=== PATIENT | female | born 1965 | race African-American/Black ===

== ENCOUNTER → 2023-08-01 09:06 | Outpatient (REF) | payer BC, SELFPAY | LOC: REG 09:06 | PROVIDERS: ATTENDING PHYSICIAN Internal Medicine | DX: A04.72 Enterocolitis due to Clostridium difficile, not specified as recurrent (principal) | CPT/HCPCS: 87324; 87449 ==

== ENCOUNTER 2023-08-05 23:11 | Emergency (ER) | payer BC, SELFPAY ==
[2023-08-05 23:12] VITALS: BP 158/94
[2023-08-06] MEDS: FIRVANQ 125 MG PO (00:10)
[2023-08-06] MEDS: NSS 1000 IV (00:12)
[2023-08-06 00:24] LABS: ALT (SGPT) 28 U/L (0-35); AST (SGOT) 22 U/L (14-36); Albumin 3.3 g/dl (3.5-5.0); Alkaline Phosphatase 89 U/L (38-126); Blood Urea Nitrogen 18 mg/dl (7-17); Calcium 9.6 mg/dl (8.4-10.2); Carbon Dioxide 25 mmol/L (22-30); Chloride 101 mmol/L (98-107); Glucose 121 mg/dl (70-99); Potassium 3.4 mmol/L (3.5-5.1); Sodium 135 mmol/L (135-145); Total Bilirubin 0.5 mg/dl (0.2-1.3); Total Protein 6.1 g/dl (6.3-8.2); eGFR 53.46
[2023-08-06 00:35] LABS: % Basophils 0.4 % (0-2); % Eosinophils 1.9 % (0-6); % Lymphocytes 22.6 % (20.5-51.1); % Monocytes 11.8 % (1.7-9.3); % Neutrophils 62.3 % (42.2-75.2); Absolute Eosinophils 0.2 10^3/uL (0-0.7); Absolute Immature Granulocytes 0.1 10^3/uL (0-0.05); Absolute Lymphocytes 1.8 10^3/uL (1.2-3.4); Absolute Monocytes 0.9 10^3/uL (0.1-0.6); Hematocrit 36.9 % (37.0-47.0); Hemoglobin 12.1 g/dL (12.0-16.0); Mean Corp Hgb Conc. 32.8 g/dL (33.0-37.0); Mean Corpuscular Hgb 26.9 pg (27.0-31.0); Mean Corpuscular Volume 82.2 fL (81.0-99.0); Mean Platelet Volume 9.5 fL (7.4-10.4); Nucleated Red Blood Cells % 0 %; Platelet Count 257 10^3/uL (130-400); Red Blood Cell Count 4.49 10^6/uL (4.20-5.40); Red Cell Dist. Width 14.6 % (11.5-14.5)
[2023-08-06 00:36] VITALS: BP 129/79
--- NOTE | 2023-08-06 00:51 | ED.GENMED ---
History of Present Illness
General
Chief Complaint: Abdominal Pain
Source: patient, records and previous hospital records (Previous hospitalization March 2023 treated for acute gastroenteritis found to have acute C. difficile colitis complicated by acute kidney injury related to dehydration)
Exam Limitations: none
Time Seen by Provider: 08/05/23 23:26
Nursing documentation reviewed up to this point in time: agreed with
Travel History
Have you had any contact with someone who has COVID-19?: No
Do you have any symptoms of coronavirus? Fever > 100 degrees, chills, cough, shortness of breath, sore throat, loss of taste or smell, muscle aches, or headache?: No
History of Present Illness
History of Present Illness:
This is a 57-year-old woman who has history of C. difficile colitis hospitalized here March 2023. At that time she was suffering with nausea, vomiting, diarrhea, acute febrile illness. C. difficile antigen found to be positive and patient has
no risk factors for C. 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. She was treated with Dificid and then transitioned to oral vancomycin as Dificid was cost prohibitive.
Hospitalization was complicated by acute kidney injury related to dehydration as well as hypokalemia.
Patient states since that hospitalization she has had 2 recurrent episodes of C. difficile, both treated with oral vancomycin. Initial episode in April and stool for C. difficile was positive at that time. An additional episode occurred in
June, she was treated with oral vancomycin without stool sampling.
Patient complains of intermittent mid to upper abdominal crampy pain accompanied with diarrhea that began 9 days ago. Symptoms feel very similar to previous episodes of C. difficile colitis. She has not had a fever nor chills, no nausea nor
vomiting. She denies hematochezia. No dizziness nor lightheadedness. Abdominal cramping improves after passing a loose stool. She reports passing approximately 6-8 small watery stools per day with occasional mixed with small pieces of soft stool.
She did drop off a stool for C. difficile testing on Sunday, August 01. Has not received results yet. She attempted to call her primary care physician but apparently is out of town until the end of next week.
With ongoing symptoms for more than a week patient presented to the ED for further evaluation.
She denies recent travel nor recent antibiotic use.
Past History
Past History
ED Past Medical History: GERD, HTN and Other (Gastritis, C. difficile colitis March 2023); Negative Asthma or NIDDM
ED Past Surgical History: None
Social History
Tobacco: Non-smoker
Alcohol: None
Drug: None
Personal:
Living: with family
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
Family History
Family History: Other (nc)
Phy Exam
Physical Exam
Physical Exam:
GENERAL: 57-year-old woman appears her stated age, bright and alert, pleasant, appears in no acute distress.
EYE: anicteric
NECK: Supple, nontender, no meningismus, no significant adenopathy.
ENT: oral mucosa is moist. No rhinorrhea.
CARDIAC: Regular rate and rhythm. no murmur.
LUNGS: Clear breath sounds bilaterally, no acute respiratory distress, no wheezes/rales/rhonchi
ABDOMEN: Soft, nondistended, without focal tenderness, no r/g, no cvat. normoactive BS.
NEUROLOGICAL: Alert and oriented x3, no focal neuro deficits. Gait is vincent and steady.
SKIN: Warm and dry, normal color, skin intact. No rash.
MUSCULOSKELETAL: No C/C/E. peripheral pulses are full and equal b/l. No palpable tenderness.
PSYCH: Normal and appropriate interaction.
Course
Orders/Labs/Results
Orders:
Orders
08/05/23 23:44
0.9% Sodium Chloride 1000 ml [Nss] 1,000 ml IV BOLUS
08/05/23 23:47
Complete Blood Count/With Diff Urgent
Comprehensive Metabolic Panel Urgent
Lipase Urgent
08/05/23 23:52
Vancomycin HCl [Firvanq] 125 mg PO NOW STA
08/06/23 01:06
Potassium Chloride [KCl] 20 meq PO NOW STA
Abnormal Lab Results
08/05/23
23:47
Hct 36.9 L %
(37.0-47.0)
MCH 26.9 L pg
(27.0-31.0)
MCHC 32.8 L g/dL
(33.0-37.0)
RDW 14.6 H %
(11.5-14.5)
Abs Immat Gran (auto) 0.1 H 10^3/uL
(0-0.05)
Absolute Monos (auto) 0.9 H 10^3/uL
(0.1-0.6)
Immature Gran % 1.0 H %
(0-0.5)
Monocytes % 11.8 H %
(1.7-9.3)
Potassium 3.4 L mmol/L
(3.5-5.1)
BUN 18 H mg/dl
(7-17)
Creatinine 1.2 H mg/dL
(0.6-1.0)
Glucose 121 H mg/dl
(70-99)
Total Protein 6.1 L g/dl
(6.3-8.2)
Albumin 3.3 L g/dl
(3.5-5.0)
08/05/23 23:47
08/05/23 23:47
Vital Signs
Initial and Last Documented VS:
Initial Vital Signs
Temp Pulse Resp BP Pulse Ox
98.2 F 94 18 158/94 98
08/05/23 23:12 08/05/23 23:12 08/05/23 23:12 08/05/23 23:12 08/05/23 23:12
Last Documented Vital Signs
Temp Pulse Resp BP Pulse Ox
98.2 F 76 16 135/76 100
08/05/23 23:12 08/06/23 01:21 08/06/23 01:21 08/06/23 01:21 08/06/23 01:21
MDM/Problems Addressed
Differential Diagnosis Includes:
Concern for recurrent C. difficile colitis.
Stool for C. difficile on August 01 was positive for toxigenic C. difficile.
Concern for acute on chronic kidney disease, concern for electrolyte abnormality, recurrent hypokalemia. Less likely biliary colic/cholecystitis, pancreatitis, gastritis. As abdomen is currently soft and nontender, bowel obstruction is unlikely.
Clinically, overall patient is well in appearance and appears euvolemic.
Abdomen is soft and nontender.
Will check labs including LFTs, lipase.
Will initiate IV fluids and initiate oral vancomycin.
Chronic conditions affecting care: Kidney disease (Chronic kidney disease stage II/III) and Other (Prior history of C. difficile colitis)
*Pulse Oximetry
Patient hypoxic: no
*Critical Care Note
Total Time (30-74mins, 75-104mins- exclusive of procedures): Not Applicable
Update Note
Update Note:
Patient continues to feel well, she has passed 1 loose stool since arrival to the ED with no significant abdominal discomfort and remains afebrile.
Labs show normal white blood cell count.
Creatinine 1.2, appears to be patient's baseline of 1.1-1.2
Very mild hypokalemia with potassium of 3.4. Repleted orally.
Will discharge to home with 10-day course of oral vancomycin.
Recommend she continue probiotic and continue cholestyramine as well.
Discussed importance of remaining well-hydrated on a daily basis. Consume potassium rich foods such as bananas.
Recommend she touch base with GI specially with concern for recurrent C. difficile diarrheal illnesses.
ED Attending Note
-
Portions of this chart may have been created with voice recognition software.� Occasional wrong word or��sound alike� substitutions may have occurred due to the inherent limitations of voice recognition software.
Discharge Plan
Departure
Patient Disposition: Home (Routine Discharge)
Date of Disposition: 08/06/23
Time of Disposition: 01:37
Patient with high blood pressure during this ER visit?: No
Condition: Good
Discharge Problem:
Recurrent Clostridioides difficile diarrhea
Instructions: Clostridioides difficile (DC)
Prescriptions:
New
vancomycin 125 mg capsule
125 mg PO QID Qty: 40 0RF
No Action
labetalol 200 MG tablet
400 mg PO BID Qty: 200 2RF
albuterol sulfate 2.5 MG/3 ML solution for nebulization
2.5 mg inhalation R Q4HPRN PRN (Reason: SOB, COUGH, WHEEZE) Qty: 1 0RF
amlodipine 10 MG tablet
10 mg PO DAILY Qty: 30 2RF
furosemide 40 MG tablet
40 mg PO DAILY
Hold Instructions: Resume on 03/26/23. Can be resumed once diarrhea is improved
hydralazine 50 MG tablet
50 mg PO BID
pantoprazole 40 MG tablet,delayed release (DR/EC)
40 mg PO DAILY Qty: 30 0RF
Dificid 200 mg Tablet
200 mg PO BID Qty: 20 0RF
Rx Instructions:
FOR DOCUMENTATION ONLY PRESCRIPTION SENT TO [facility]
cholestyramine-aspartame [Cholestyramine Light] 4 gram Powder In Packet
4 g PO BID Qty: 60 0RF
Rx Instructions:
CAN STOP EARLY IF DIARRHEA RESOLVED
Saccharomyces boulardii 250 mg Capsule
250 mg PO BID Qty: 60 0RF
vancomycin 125 mg capsule
125 mg PO QID 10 Days Qty: 40 0RF
Referrals:
Jagruti Mccormack MD [Active] - Call in 1-3 days for appt
Sylvester May MD [Family Provider] -
Stand Alone Forms: Return to Work
Interventions
Interventions:
*Risk Screen - Suicide Last Done: 08/05/23 23:12
*General Assessment Last Done: 08/06/23 00:28
*Neglect/Abuse Screening Last Done: 08/05/23 23:12
ED- Fall Risk Assessment Last Done: 08/06/23 00:28
*ED COVID-19 Vaccine History Last Done: 08/05/23 23:19
PC-Fraebr-Bhpkvdyhwt Assessment Last Done: 08/06/23 00:28
[2023-08-06 00:53] LABS: Lipase 73 U/L (23-300)
[2023-08-06] MEDS: KCL 20 MEQ PO (01:15)
[2023-08-06 01:21] VITALS: BP 135/76
== END 2023-08-06 01:51 | disposition home or self-care (01) ==
LOC: EMR 23:11
PROVIDERS: EMERGENCY PHYSICIAN Emergency Medicine; FAMILY PHYSICIAN Internal Medicine
DX: A04.71 Enterocolitis due to Clostridium difficile, recurrent (principal); K21.9 Gastro-esophageal reflux disease without esophagitis; I12.9 Hypertensive chronic kidney disease with stage 1 through stage 4 chronic kidney disease, or unspecified chronic kidney disease; N18.2 Chronic kidney disease, stage 2 (mild); Z86.19 Personal history of other infectious and parasitic diseases; Z87.19 Personal history of other diseases of the digestive system
CPT/HCPCS: 99283; 96360; 80053; 83690; 85025

== ENCOUNTER 2024-01-18 09:51 | Emergency (ER) | payer BC, SELFPAY ==
[2024-01-18 09:53] VITALS: BP 174/96
--- NOTE | 2024-01-18 10:01 | ED.CVA ---
History of Present Illness
General
Chief Complaint: CVA/TIA Symptoms
Time Seen by Provider: 01/18/24 10:01
Onset of Stroke Symptoms
Onset of symptoms known: No
Time pt last seen normal is known: No
History of Present Illness
History of Present Illness:
HPI: Pt presents w/ LUE numbness - was intermittent over the past week now constant since this morning. Also reports vision change; similar vision change a year ago and saw an eye doctor and was told 'it was her cholesterol'. No neck pain. Pain
does not worsen w/ head/neck movement. Has some associated LUE pain.
EXAM:
GENERAL: Well appearing in no distress
HEENT: Moist oral mucosa; 20/70 R, 20/40 L, 20/40 B; pterygium noted
NECK: Normal AROM
CARDIOVASCULAR: Regular rate and rhythm
PULMONARY: No respiratory distress, breathing is nonlabored, equal and clear breath sounds
ABDOMEN: Soft and nontender with no peritoneal signs
NEUROLOGIC: Excellent strength all extremities; no coordination deficits; normal speech; NIHSS = 1 (mild sens loss LUE)
EXTREMITIES: Non tender; no edema
PYSCHIATRIC: Appropriate insight and judgement
TIME OF INITIAL ENCOUNTER: 10:00am
NUMBER AND COMPLEXITY OF PROBLEMS ADDRESSED AT THE ENCOUNTER
� Chronic conditions affecting care: High BP
� Acute Exacerbation and/or Progression of Chronic Illness: This is an acute problem
� Differential Diagnosis includes: CVA/TIA, radiculopathy
AMOUNT AND/OR COMPLEXITY OF DATA TO BE REVIEWED AND ANALYZED
� I performed an independent evaluation of and my interpretation is:
EKG: Sinus 87, LAD, nonspec STT abnormality
CT: CT head / cspine personally reviewed - unremarkable
X-rays:
Laboratory Studies: CBC unremarkable, CKD noted
Other:
� Review of other/old records: C-spine xray 2021 normal
� Clinical information was obtained by an independent historian: Spoke to family member at bedside
� Prescriptions/Medications Considered but not given:
� Further testing considered but not performed:
RISK OF COMPLICATIONS AND/OR MORBIDITY OR MORTALITY OF PATIENT MANAGEMENT
� Social determinants of health affecting care: Lives at home; works at
� Discussion with other providers: D/w Dr. Dickens at 10:24am.
� Escalation of care including admission/observation vs risk of discharge considered: Favor cervical radiculopathy given associated pain in LUE. NIHSS = 1. Imaging obtained. D/w Dr. Dickens at 11:30am after his eval - will try
gabapentin/medrol dose pack
Past History
Past History
ED Past Medical History: GERD, HTN and Other (Gastritis, C. difficile colitis March 2023); Negative Asthma or NIDDM
ED Past Surgical History: None
Social History
Tobacco: Non-smoker
Alcohol: None
Drug: None
Personal:
Living: with family
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
Family History
Family History: Other (nc)
Phy Exam
Physical Exam
Physical Exam:
See HPI
Course
Orders/Labs/Results
Orders:
Orders
01/18/24 10:02
Electrocardiogram (*1) Urgent
Reason for Study: TIA/Stroke
EKG- Treatment ONCE
01/18/24 10:18
CT Cervical Spine W/o Iv Contr Urgent
Comment:
Reason For Exam: LUE numb
CT Head W/o Iv Contrast Urgent
Comment:
Reason For Exam: LUE numb
01/18/24 10:26
Complete Blood Count/With Diff Urgent
Comprehensive Metabolic Panel Urgent
Abnormal Lab Results
01/18/24
10:26
MCHC 32.8 L g/dL
(33.0-37.0)
RDW 14.7 H %
(11.5-14.5)
BUN 21 H mg/dl
(7-17)
Creatinine 1.4 H mg/dL
(0.6-1.0)
Glucose 136 H mg/dl
(70-99)
01/18/24 10:26
01/18/24 10:26
Vital Signs
Initial and Last Documented VS:
Initial Vital Signs
Temp Pulse Resp BP Pulse Ox
98.5 F 97 16 174/96 98
01/18/24 09:53 01/18/24 09:53 01/18/24 09:53 01/18/24 09:53 01/18/24 09:53
Last Documented Vital Signs
Temp Pulse Resp BP Pulse Ox
98.5 F 83 27 155/91 99
01/18/24 09:53 01/18/24 11:30 01/18/24 11:30 01/18/24 11:11 01/18/24 11:30
*Critical Care Note
Total Time (30-74mins, 75-104mins- exclusive of procedures): Not Applicable
ED Attending Note
-
Portions of this chart may have been created with voice recognition software.� Occasional wrong word or��sound alike� substitutions may have occurred due to the inherent limitations of voice recognition software.
Discharge Plan
Departure
Patient Disposition: Home (Routine Discharge)
Date of Disposition: 01/18/24
Time of Disposition: 11:34
Patient with high blood pressure during this ER visit?: Yes
Discharge Problem:
Cervical radiculopathy
Instructions: Radiculopathy (DC)
Prescriptions:
New
methylprednisolone [Medrol (Ankur)] 4 mg tablets,dose pack
See Rx Instructions .ROUTE .COMPLEX Qty: 21 0RF
Rx Instructions:
orally per package directions
gabapentin 300 mg capsule
300 mg PO BID PRN (Reason: pain) 1 Days Qty: 60 0RF
No Action
labetalol 200 MG tablet
400 mg PO BID Qty: 200 2RF
albuterol sulfate 2.5 MG/3 ML solution for nebulization
2.5 mg inhalation R Q4HPRN PRN (Reason: SOB, COUGH, WHEEZE) Qty: 1 0RF
amlodipine 10 MG tablet
10 mg PO DAILY Qty: 30 2RF
furosemide 40 MG tablet
40 mg PO DAILY
hydralazine 50 MG tablet
50 mg PO BID
pantoprazole 40 MG tablet,delayed release (DR/EC)
40 mg PO DAILY Qty: 30 0RF
Dificid 200 mg Tablet
200 mg PO BID Qty: 20 0RF
Rx Instructions:
FOR DOCUMENTATION ONLY PRESCRIPTION SENT TO [facility]
cholestyramine-aspartame [Cholestyramine Light] 4 gram Powder In Packet
4 g PO BID Qty: 60 0RF
Rx Instructions:
CAN STOP EARLY IF DIARRHEA RESOLVED
Saccharomyces boulardii 250 mg Capsule
250 mg PO BID Qty: 60 0RF
vancomycin 125 mg capsule
125 mg PO QID 10 Days Qty: 40 0RF
vancomycin 125 mg capsule
125 mg PO QID Qty: 40 0RF
Referrals:
Manuel Dickens MD [Active] - Follow up in 10 days
NONE,* [Family Provider] -
Activity Restrictions/Additional Instructions:
CT scan of brain and cervical spine show no acute abnormality. Other than mild renal insufficiency (similar to prior) labs and EKG are unremarkable.
Interventions
Interventions:
*Risk Screen - Suicide Last Done: 01/18/24 09:57
*General Assessment Last Done: 01/18/24 09:57
*Neglect/Abuse Screening Last Done: 01/18/24 09:57
ED- Fall Risk Assessment Last Done: 01/18/24 10:03
*ED COVID-19 Vaccine History Last Done: 01/18/24 10:03
ED- Pulmonary Assessment Last Done: 01/18/24 10:09
ED- Neurological Assessment Last Done: 01/18/24 10:08
ED- Cardiac Assessment Last Done: 01/18/24 10:10
Discharge Date and Time
Print Language: GEORGIAN
[2024-01-18 10:08] VITALS: BMI 33.1
[2024-01-18 10:12] VITALS: BP 151/98
[2024-01-18 10:36] LABS: % Basophils 0.6 % (0-2); % Eosinophils 2.6 % (0-6); % Immature Granulocytes 0.2 % (0-0.5); % Monocytes 8.9 % (1.7-9.3); % Neutrophils 60.7 % (42.2-75.2); Absolute Eosinophils 0.1 10^3/uL (0-0.7); Absolute Lymphocytes 1.4 10^3/uL (1.2-3.4); Absolute Monocytes 0.5 10^3/uL (0.1-0.6); Absolute Neutrophils 3.2 10^3/uL (1.4-6.5); Hematocrit 38.7 % (37.0-47.0); Hemoglobin 12.7 g/dL (12.0-16.0); Mean Corp Hgb Conc. 32.8 g/dL (33.0-37.0); Mean Corpuscular Hgb 27.1 pg (27.0-31.0); Mean Corpuscular Volume 82.5 fL (81.0-99.0); Mean Platelet Volume 9.3 fL (7.4-10.4); Nucleated Red Blood Cells % 0 %; Platelet Count 186 10^3/uL (130-400); Red Blood Cell Count 4.69 10^6/uL (4.20-5.40); Red Cell Dist. Width 14.7 % (11.5-14.5); White Blood Cell Count 5.3 10^3/uL (4.8-10.8)
[2024-01-18 10:48] LABS: ALT (SGPT) 22 U/L (0-35); AST (SGOT) 24 U/L (14-36); Albumin 4.1 g/dl (3.5-5.0); Alkaline Phosphatase 97 U/L (38-126); Blood Urea Nitrogen 21 mg/dl (7-17); Calcium 9.8 mg/dl (8.4-10.2); Carbon Dioxide 30 mmol/L (22-30); Chloride 102 mmol/L (98-107); Estimated Creatinine Clearance 50 ml/min; Glucose 136 mg/dl (70-99); Potassium 3.7 mmol/L (3.5-5.1); Sodium 138 mmol/L (135-145); Total Bilirubin 0.4 mg/dl (0.2-1.3); Total Protein 6.9 g/dl (6.3-8.2); eGFR 44.16
[2024-01-18 11:11] VITALS: BP 155/91
--- NOTE | 2024-01-18 11:41 | CON.NEURO4 ---
Consultation - Neurology 4
-
CONSULTING PHYSICIAN: Rosa Dickens
REFERRING PHYSICIAN: ER
DICTATED BY: Rosa Dickens
DATE/TIME OF REQUEST: 01/18/24
DATE/TIME OF CONSULTATION: 01/18/24
Reason for Consultation: Left arm paresthesia, left eye vision change
History of Present Illness:
The patient is a 58-year-old right-handed woman with past ministry of obesity, hypertension CHF, C. difficile infection present to hospital with complaint of intermittent left arm paresthesia now becoming more constant and noticeable accompanied by
some left neck and shoulder pain as well. Additionally complaint of left eye blurriness happening in the past couple of days. she has not noticed any significant weakness of the left hand or arm and no paresthesia of the face or left leg or
weakness or difficulties walking. No recent head or neck trauma denies any significant neck or spine issues in the cervical spine no history of spine or back surgeries. No recent sick contacts no fever chills unusual weight loss or history of
cancer.
Patient relates that the left arm paresthesia and pain is somewhat similar to an episode she had around 1 year ago this was thought to be possibly be due to cervical lymphadenitis she was initially treated with clindamycin, eventually developed C.
difficile colitis.
Patient describes the left arm pain as difficult to describe but is around a 7 out of 10 in terms of severity does not seem to be worse with position change or moving the arm or shoulder or neck. Describes the paresthesia of the lower portion of
the left neck left shoulder and arm and proximal part of the forearm but not into the hand or fingers.
Vision change described as left eye blurring without any pain no double vision no fever or ocular discharge she has seen skin former in the past with some symptomatic eyedrops around 1 year ago but nothing major no history of eye surgeries.
Past Medical History: Hypertension, GERD, CHF, C diff infection
Surgical History: None
Family History: Reviewed and non-contributory
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
Review of Symptoms:
Patient denies any fever, headache, chest pain, shortness of breath, GI or symptoms.
Physical Exam:
Well-appearing middle-aged woman no signs of distress neck supple Spurling's maneuver is negative no abnormality to cervical spine palpation shoulder with no abnormality palpation of the bony or soft tissues of shoulder nor clavicle passive range of
motion of the left shoulder and left arm is normal without pain no swelling of the left arm or rashes seen or swelling of the neck. Heart rate regular breathing unlabored abdomen is obese soft nontender no lower extremity edema.
Neurologic Examination:
The patient is awake, alert and oriented x 3. She is able to follow commands and answer questions appropriately. There is no aphasia or dysarthria. On cranial nerve assessment, pupils are 3 mm bilateral, round and reactive to light and
accommodation. No APD seen. Visual gary are full. Vision 20/30 in left eye and 20/40 to right eye to near card testing. Extraocular movements are intact. Facial sensations are intact and bilaterally symmetrical, there is no facial asymmetry.
Hearing is intact bilaterally to normal conversation volume. Tongue palate and uvula are midline. Sternocleidomastoid strengths are full bilaterally. There is no drift or involuntary movement noted. Deep tendon reflexes are 2+ bilateral upper and
lower extremities and Babinski is absent bilaterally. Left arm strength shows 5/5 shoulder abduction 5/5 left arm flexion and extension 5/5 wrist extension and finger flexion/extension 5/5 thumb opposition flexion and extension. Intact to light
touch, temperature, vibration throughout left arm no obvious dermatomal sensation loss. There was no extinction noted on double simultaneous stimulation. Coordination is intact by finger to nose bilaterally.
Neuro Imaging: CT head non contrast no abnormalities
CT C spine no bony abnormality seen no osseus mets or cervical spine fractures
Impressions
1. Most likely a high left sided cervical radiculopathy given left arm paresthesia and pain. No significant weakness or red flags, no signs or cervical spine compromise. CT head and C spine no abnormalities.
2. Left eye vision changes I think are unrelated to the left arm symptoms, very likely this is primary ocular issue as symptoms and exam do not localize to brain, optic tract. Vision in left eye 20/30. No concern for optic neuritis.
Recommendations:
1. Symptomatic treatment left cerivical radiculopathy, low dose Gabapentin 100 mg TID is acceptable, she is open to medrol dose pack, can use NSAID no more than 2 days a week, PRN tylenol.
2. Given the previous history of similar issue that was somewhat suspicious for cervical adenitis would give 2-3 weeks of symptomatic treatment and conservative management, if symptoms still present would pursue MRI cervical spine with and without
contrast in outpatient setting. I let her know to monitor if symptoms worsen or if she develops weakness in the left arm
3. Advised neurology follow up in 4 weeks as well as finding new PCP as hers had retired recently
4. No further imaging felt necessary from ED
5. Ophthalmology follow up for the ocular symptoms
Discussed patient care with: Patient and her , ER physician
== END 2024-01-18 12:17 | disposition home or self-care (01) ==
LOC: EMR 09:51
PROVIDERS: EMERGENCY PHYSICIAN Emergency Medicine; OTHER PHYSICIAN Student in an Organized Health Care Education/Training Program
DX: M54.12 Radiculopathy, cervical region (principal); I11.0 Hypertensive heart disease with heart failure; I50.9 Heart failure, unspecified
CPT/HCPCS: 99285; 70450; 72125; 80053; 85025; 93005

== ENCOUNTER 2024-02-24 09:51 | Emergency (ER) | payer BC, SELFPAY ==
[2024-02-24 09:56] VITALS: BP 167/97
--- NOTE | 2024-02-24 11:21 | ED.GENMED ---
History of Present Illness
General
Chief Complaint: Musculo-Skeletal Complaint
Source: patient and family
Exam Limitations: none
Time Seen by Provider: 02/24/24 11:00
History of Present Illness
History of Present Illness:
58-year-old female with ongoing left trapezius leg pain radiating to her upper back with some tingling down the left arm. At times has some visual issues with this but none currently. Pain was worse this morning. Pain has been relatively constant
over the last 7 weeks. 3 weeks prior to her last ER visit in the full week since. She has had no follow-up. However symptoms do wax and wane. Currently symptoms are relatively mild. Denies chest pain shortness of breath fever bowel or bladder
issues or other complaints
Past History
Past History
ED Past Medical History: GERD, HTN and Other (Gastritis, C. difficile colitis March 2023); Negative Asthma or NIDDM
ED Past Surgical History: None
Social History
Tobacco: Non-smoker
Alcohol: None
Drug: None
Personal:
Living: with family
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
Family History
Family History: Other (nc)
Review of Systems
Review of Systems
All Other Systems: Not applicable
Constitutional: Denies fever or chills
Cardiac: Denies chest pain or syncope
ABD/GI: Reports no symptoms
Phy Exam
Physical Exam
Physical Exam:
GENERAL: Alert and oriented in no apparent distress
EYE: Orbits normal. Pterygium left eye
NECK: Supple, no carotid bruit. Good range of motion. No spinal tenderness. Mild tenderness over the left trapezius and brachial plexus area. No swelling no warm
ENT: Pharynx without erythema
CARDIAC: Regular rate and rhythm without any obvious murmurs.
LUNGS: Clear breath sounds,normal
ABDOMEN: Soft, without focal tenderness or distention
NEUROLOGICAL: Alert and oriented , cranial nerves II through XII intact. Speech normal. [id number] normal. No drift. Lower extremity strength normal. Light touch intact.
SKIN: Warm and dry, no rash or lesion, no discoloration, skin intact.
MUSCULOSKELETAL: No edema,no deformity.Good color
PSYCH: Normal and appropriate interaction.
Course
Orders/Labs/Results
Orders:
Orders
02/24/24 11:20
Electrocardiogram (*1) Stat
Reason for Study: Other
Other Reason for Exam: neuro symptoms
CT Head & Neck Angio W/wo IV Urgent
Comment:
Reason For Exam: Left neck pain left-sided headache with left arm p
Cardiac Monitoring- Treatment ONCE
EKG- Treatment ONCE
IV Insert/Care/Rem.- Treatment PRN
0.9% Sodium Chloride 500 ml [Nss] 500 ml IV BOLUS
Pulse Ox/cont/shift [RESP] Stat
Quantity: 1
02/24/24 11:46
Basic Metabolic Panel Urgent
CRP [C-Reactive Protein] Urgent
Complete Blood Count/With Diff Urgent
ESR [Erythrocyte Sed Rate] Urgent
Troponin I Urgent
Abnormal Lab Results
02/24/24
11:46
MCV 80.2 L fL
(81.0-99.0)
MCH 26.5 L pg
(27.0-31.0)
RDW 15.6 H %
(11.5-14.5)
ESR 30 H mm/hour
(0-20)
BUN 20 H mg/dl
(7-17)
Creatinine 1.2 H mg/dL
(0.6-1.0)
Glucose 102 H mg/dl
(70-99)
02/24/24 11:46
02/24/24 11:46
Vital Signs
Initial and Last Documented VS:
Initial Vital Signs
Temp Pulse Resp BP Pulse Ox
98.6 F 88 18 167/97 97
02/24/24 09:56 02/24/24 09:56 02/24/24 09:56 02/24/24 09:56 02/24/24 09:56
Last Documented Vital Signs
Temp Pulse Resp BP Pulse Ox
98.6 F 74 18 136/83 99
02/24/24 09:56 02/24/24 14:30 02/24/24 14:30 02/24/24 12:00 02/24/24 14:30
MDM/Problems Addressed
Differential Diagnosis Includes:
Patient with ongoing left trapezius upper back pain with paresthesias to the left arm. Has been constant for 7 weeks. No chest pain no shortness of breath. No syncope. Exam is unremarkable. Previous records reviewed. Symptoms described are
most consistent with a radiculopathy although more suspicious of a brachial plexus issue than spinal issue. Doubt acute spinal process. Doubt cardiac. Vascular issue has to be considered. Cardiac workup for completeness. CT angios. If all
stable patient will be discharged to follow-up
*Radiology
Radiology exam reviewed: radiology read reviewed (Negative CT angiography. Retention cyst)
*Pulse Oximetry
Patient hypoxic: no
*EKG
Interpreted by ED Provider?: Yes
Interpretation: normal
Comparison EKG: no changes
Heart Rate: 78
Rate: normal
Rhythm: sinus
[place]: normal axis
Interval: normal interval
QRS Pattern: normal QRS
Ischemia: no ischemia
*Critical Care Note
Total Time (30-74mins, 75-104mins- exclusive of procedures): Not Applicable
Data Reviewed
Review of Other/Old Records Reveals: Labs, Records and Radiology Studies
Update Note
Update Note:
Patient is remained clinically stable and nontoxic. She is in no distress. She has had no recurring severe pain. Clinically this is very radiculopathy like. CT angiography negative. Cardiac testing negative. Has had symptoms for 7 weeks.
Stable for discharge to follow-up
ED Attending Note
-
Portions of this chart may have been created with voice recognition software.� Occasional wrong word or��sound alike� substitutions may have occurred due to the inherent limitations of voice recognition software.
Discharge Plan
Departure
Patient Disposition: Home (Routine Discharge)
Date of Disposition: 02/24/24
Time of Disposition: 15:19
Patient with high blood pressure during this ER visit?: Yes
Discharge Problem:
Left neck/shoulder pain, Suspect radiculopathy
Instructions: Radiculopathy (DC), BLOOD PRESSURE
Prescriptions:
No Action
labetalol 200 MG tablet
400 mg PO BID Qty: 200 2RF
albuterol sulfate 2.5 MG/3 ML solution for nebulization
2.5 mg inhalation R Q4HPRN PRN (Reason: SOB, COUGH, WHEEZE) Qty: 1 0RF
amlodipine 10 MG tablet
10 mg PO DAILY Qty: 30 2RF
furosemide 40 MG tablet
40 mg PO DAILY
hydralazine 50 MG tablet
50 mg PO BID
pantoprazole 40 MG tablet,delayed release (DR/EC)
40 mg PO DAILY Qty: 30 0RF
Dificid 200 mg Tablet
200 mg PO BID Qty: 20 0RF
Rx Instructions:
FOR DOCUMENTATION ONLY PRESCRIPTION SENT TO [facility]
cholestyramine-aspartame [Cholestyramine Light] 4 gram Powder In Packet
4 g PO BID Qty: 60 0RF
Rx Instructions:
CAN STOP EARLY IF DIARRHEA RESOLVED
Saccharomyces boulardii 250 mg Capsule
250 mg PO BID Qty: 60 0RF
vancomycin 125 mg capsule
125 mg PO QID 10 Days Qty: 40 0RF
vancomycin 125 mg capsule
125 mg PO QID Qty: 40 0RF
methylprednisolone [Medrol (Ankur)] 4 mg tablets,dose pack
See Rx Instructions .ROUTE .COMPLEX Qty: 21 0RF
Rx Instructions:
orally per package directions
gabapentin 300 mg capsule
300 mg PO BID PRN (Reason: pain) 1 Days Qty: 60 0RF
Referrals:
NONE,* [Family Provider] -
Activity Restrictions/Additional Instructions:
Call the office that you were given the number to tomorrow morning for close follow-up with the wellness center
Tylenol and or ibuprofen for pain
Return sooner with increased pain chest pain persistent shortness of breath fever worsening numbness tingling or weakness or any other concerning symptoms
Interventions
Interventions:
*Risk Screen - Suicide Last Done: 02/24/24 11:57
*General Assessment Last Done: 02/24/24 11:57
*Neglect/Abuse Screening Last Done: 02/24/24 11:57
ED- Fall Risk Assessment Last Done: 02/24/24 11:58
*ED COVID-19 Vaccine History Last Done: 02/24/24 11:57
ED-Musculoskeletal Assessment Last Done: 02/24/24 11:58
Discharge Date and Time
Print Language: SLOVENIAN
[2024-02-24 11:51] VITALS: BP 140/88
[2024-02-24] MEDS: NSS 500 IV (11:51)
[2024-02-24 11:56] VITALS: BMI 32.5
[2024-02-24 12:00] VITALS: BP 136/83
[2024-02-24 12:00] LABS: % Basophils 0.5 % (0-2); % Eosinophils 1.1 % (0-6); % Immature Granulocytes 0.4 % (0-0.5); % Monocytes 9.3 % (1.7-9.3); % Neutrophils 53.7 % (42.2-75.2); Absolute Eosinophils 0.1 10^3/uL (0-0.7); Absolute Lymphocytes 1.9 10^3/uL (1.2-3.4); Absolute Monocytes 0.5 10^3/uL (0.1-0.6); Hematocrit 39.4 % (37.0-47.0); Mean Corpuscular Hgb 26.5 pg (27.0-31.0); Mean Corpuscular Volume 80.2 fL (81.0-99.0); Mean Platelet Volume 8.9 fL (7.4-10.4); Nucleated Red Blood Cells % 0 %; Platelet Count 216 10^3/uL (130-400); Red Blood Cell Count 4.91 10^6/uL (4.20-5.40); Red Cell Dist. Width 15.6 % (11.5-14.5); White Blood Cell Count 5.5 10^3/uL (4.8-10.8)
[2024-02-24 12:16] LABS: Blood Urea Nitrogen 20 mg/dl (7-17); Carbon Dioxide 30 mmol/L (22-30); Chloride 102 mmol/L (98-107); Estimated Creatinine Clearance 56 ml/min; Glucose 102 mg/dl (70-99); Sodium 142 mmol/L (135-145); eGFR 53.13
[2024-02-24 12:20] LABS: C-Reactive Protein < 5.00 mg/L (0.0-10.00); Erythrocyte Sed Rate 30 mm/hour (0-20)
[2024-02-24 12:36] LABS: Troponin I < 0.012 ng/ml
[2024-02-24 15:13] VITALS: BP 139/87
[2024-02-24 16:23] VITALS: BP 139/87
== END 2024-02-24 16:29 | disposition home or self-care (01) ==
LOC: EMR 09:51
PROVIDERS: EMERGENCY PHYSICIAN Emergency Medicine
DX: M54.2 Cervicalgia (principal); M25.512 Pain in left shoulder; I10 Essential (primary) hypertension
CPT/HCPCS: 99285; 96360; 96361; 70496; 70498; 80048; 84484; 85025; 85652; 86140; 93005; Q9967

== ENCOUNTER → 2024-03-05 08:17 | Outpatient (REF) | payer BC, SELFPAY | LOC: WDC 08:17 | PROVIDERS: ATTENDING PHYSICIAN Obstetrics & Gynecology | DX: Z12.31 Encounter for screening mammogram for malignant neoplasm of breast (principal) | CPT/HCPCS: 77063; 77067 ==

== ENCOUNTER → 2024-03-11 07:07 | Outpatient (REF) | payer BC, SELFPAY | LOC: MRI 07:07 | PROVIDERS: ATTENDING PHYSICIAN Student in an Organized Health Care Education/Training Program; REFERRING PHYSICIAN Internal Medicine | DX: M54.12 Radiculopathy, cervical region (principal) | CPT/HCPCS: 72141 ==

== ENCOUNTER → 2024-03-12 08:46 | Outpatient (REF) | payer BC, SELFPAY | LOC: WDC 08:46 | PROVIDERS: ATTENDING PHYSICIAN Obstetrics & Gynecology | DX: R92.8 Other abnormal and inconclusive findings on diagnostic imaging of breast (principal) | CPT/HCPCS: 76642 ==

== ENCOUNTER → 2024-03-19 07:34 | Outpatient (REF) | payer BC, SELFPAY | LOC: EMG 07:34 | PROVIDERS: ATTENDING PHYSICIAN Student in an Organized Health Care Education/Training Program | DX: M54.12 Radiculopathy, cervical region (principal); R20.0 Anesthesia of skin | CPT/HCPCS: 95886; 95909 ==

== ENCOUNTER 2024-04-01 08:58 | Emergency (ER) | payer BC, SELFPAY ==
[2024-04-01] VITALS (10 sets, daily range): BP systolic 156–193; BP diastolic 72–120; BMI 32.6
--- NOTE | 2024-04-01 09:25 | ED.GENMED ---
History of Present Illness
General
Chief Complaint: Dizziness
Time Seen by Provider: 04/01/24 09:13
History of Present Illness
History of Present Illness:
Patient is a 58-year-old woman with history of hypertension, CHF with preserved EF presenting to the emergency department with dizziness. Patient states that she was out work around 7:30 AM she was walking became short of breath lightheaded dizzy
and felt like her heart was racing. At this time all her symptoms have resolved however she still feels slightly short of breath. She does takes Lasix and does not feel that this is her heart failure. She did take an albuterol inhaler with some
relief. She has been having some congestion but no fevers chills. No chest pain. No cough. No nausea or vomiting. No diarrhea. No alcohol or drug use. No history of thyroid problems. No leg swelling hemoptysis recent car rides or
immobilization. No history of blood clots.
Per chart review it appears that patient was admitted in 2018 for hypertensive urgency as well as flash pulmonary edema. Echo from 2020 shows a normal EF.
Past History
Past History
ED Past Medical History: GERD, HTN and Other (Gastritis, C. difficile colitis March 2023); Negative Asthma or NIDDM
ED Past Surgical History: None
Social History
Tobacco: Non-smoker
Alcohol: None
Drug: None
Personal:
Living: with family
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
Family History
Family History: Other (nc)
Phy Exam
Physical Exam
Physical Exam:
GENERAL: in no acute distress
HEENT: normocephalic, extraocular movements intact, moist oral mucosa, congested
NECK: normal inspection
RESPIRATORY: no respiratory distress, clear to auscultation though tight breath sounds with some wheezing
CARDIOVASCULAR: regular rate and rhythm
ABDOMEN/: soft, non-distended, non-tender to palpation, no rebound or guarding
EXTREMITIES: non-tender, no edema/swelling
NEUROLOGIC: awake and alert, moves all extremities
SKIN: warm
Course
Orders/Labs/Results
Orders:
Orders
04/01/24 08:59
Electrocardiogram (*1) Urgent
Reason for Study: Vertigo / Dizzy
EKG- Treatment ONCE
04/01/24 09:23
Ipratropium/Albuterol Sulfate [Duoneb] 3 ml INH R NOW ONE
04/01/24 09:24
CR Chest - 2 Views Urgent
Comment:
Reason For Exam: SOB
04/01/24 09:35
Basic Metabolic Panel Urgent
Complete Blood Count/With Diff Urgent
Magnesium Urgent
NT-proBNP Urgent
Thyroid profile [TSH Reflex To Free T4] Urgent
Troponin I Urgent
04/01/24 12:04
Troponin I Routine
Abnormal Lab Results
04/01/24
09:35
MCV 80.4 L fL
(81.0-99.0)
MCH 26.7 L pg
(27.0-31.0)
RDW 15.6 H %
(11.5-14.5)
Eosinophils % 10.0 H %
(0-6)
BUN 33 H mg/dl
(7-17)
Creatinine 1.2 H mg/dL
(0.6-1.0)
Glucose 106 H mg/dl
(70-99)
04/01/24 09:35
04/01/24 09:35
Vital Signs
Initial and Last Documented VS:
Initial Vital Signs
Temp Pulse Resp BP Pulse Ox
97.9 F 93 16 193/120 98
04/01/24 09:09 04/01/24 09:09 04/01/24 09:09 04/01/24 09:09 04/01/24 09:09
Last Documented Vital Signs
Temp Pulse Resp BP Pulse Ox
98.5 F 81 16 168/106 100
04/01/24 09:39 04/01/24 09:45 04/01/24 09:45 04/01/24 11:00 04/01/24 11:45
MDM/Problems Addressed
Differential Diagnosis Includes:
Patient is a 58-year-old woman with history of hypertension, CHF presenting to the emergency department with lightheadedness dizziness palpitations and shortness of breath. Most of the symptoms have resolved except for the shortness of breath.
Vitals here are notable for heart rate in the 80s and exam does show tight breath sounds with some wheezing. She is not edematous on exam. Still consists of arrhythmia versus URI versus bronchospasm versus pulmonary edema. Given the ongoing
shortness of breath could be ACS. History and exam not consistent with PE. Will obtain blood work. EKG per my interpretation normal sinus rhythm. Will obtain chest x-ray and give nebulizer treatment.
*Critical Care Note
Total Time (30-74mins, 75-104mins- exclusive of procedures): Not Applicable
Update Note
Update Note:
On reevaluation patient states that shortness of breath is much improved after the nebulizer treatment. She does state that she feels as began of a cold. We did discuss antibiotics and the use of them and these viral conditions. Return
precautions given. Chest x-ray per my interpretation with no focal opacity. Initial blood work unremarkable. Pending delta troponin. If it is normal we will discharge.
ED Attending Note
-
Portions of this chart may have been created with voice recognition software.� Occasional wrong word or��sound alike� substitutions may have occurred due to the inherent limitations of voice recognition software.
Discharge Plan
Departure
Patient Disposition: Home (Routine Discharge)
Date of Disposition: 04/01/24
Time of Disposition: 13:02
Patient with high blood pressure during this ER visit?: Yes
Discharge Problem:
Palpitations, Shortness of breath
Prescriptions:
No Action
labetalol 200 MG tablet
400 mg PO BID Qty: 200 2RF
albuterol sulfate 2.5 MG/3 ML solution for nebulization
2.5 mg inhalation R Q4HPRN PRN (Reason: SOB, COUGH, WHEEZE) Qty: 1 0RF
amlodipine 10 MG tablet
10 mg PO DAILY Qty: 30 2RF
furosemide 40 MG tablet
40 mg PO DAILY
hydralazine 50 MG tablet
50 mg PO BID
pantoprazole 40 MG tablet,delayed release (DR/EC)
40 mg PO DAILY Qty: 30 0RF
Saccharomyces boulardii 250 mg Capsule
250 mg PO BID Qty: 60 0RF
gabapentin 300 mg capsule
300 mg PO BID PRN (Reason: pain) 1 Days Qty: 60 0RF
Referrals:
Eleni Garduno MD, Resident [Family Provider] -
Interventions
Interventions:
*Risk Screen - Suicide Last Done: 04/01/24 09:09
*General Assessment Last Done: 04/01/24 09:09
*Neglect/Abuse Screening Last Done: 04/01/24 09:09
ED- Fall Risk Assessment Last Done: 04/01/24 09:39
*ED COVID-19 Vaccine History Last Done: 04/01/24 09:09
ED- Neurological Assessment Last Done: 04/01/24 09:39
ED- Cardiac Assessment Last Done: 04/01/24 09:39
ED Swallowing Screen Last Done: 04/01/24 09:39
Discharge Date and Time
Print Language: SWAZI
[2024-04-01] MEDS: DUONEB 3 ML INH (09:35)
[2024-04-01 09:47] LABS: % Basophils 1.1 % (0-2); % Immature Granulocytes 0.3 % (0-0.5); % Lymphocytes 25.7 % (20.5-51.1); % Monocytes 8.7 % (1.7-9.3); % Neutrophils 54.2 % (42.2-75.2); Absolute Basophils 0.1 10^3/uL (0-0.2); Absolute Eosinophils 0.7 10^3/uL (0-0.7); Absolute Lymphocytes 1.7 10^3/uL (1.2-3.4); Absolute Monocytes 0.6 10^3/uL (0.1-0.6); Absolute Neutrophils 3.5 10^3/uL (1.4-6.5); Hematocrit 37.7 % (37.0-47.0); Hemoglobin 12.5 g/dL (12.0-16.0); Mean Corp Hgb Conc. 33.2 g/dL (33.0-37.0); Mean Corpuscular Hgb 26.7 pg (27.0-31.0); Mean Corpuscular Volume 80.4 fL (81.0-99.0); Mean Platelet Volume 9.1 fL (7.4-10.4); Nucleated Red Blood Cells % 0 %; Platelet Count 206 10^3/uL (130-400); Red Blood Cell Count 4.69 10^6/uL (4.20-5.40); Red Cell Dist. Width 15.6 % (11.5-14.5); White Blood Cell Count 6.5 10^3/uL (4.8-10.8)
[2024-04-01 10:01] LABS: Blood Urea Nitrogen 33 mg/dl (7-17); Calcium 9.9 mg/dl (8.4-10.2); Carbon Dioxide 28 mmol/L (22-30); Chloride 103 mmol/L (98-107); Estimated Creatinine Clearance 56 ml/min; Glucose 106 mg/dl (70-99); Potassium 3.5 mmol/L (3.5-5.1); Sodium 142 mmol/L (135-145); eGFR 53.13
[2024-04-01 10:20] LABS: NT-proBNP 268 pg/ml; Troponin I < 0.012 ng/ml
[2024-04-01 10:31] LABS: TSH Reflex To Free T4 1.85 uIU/ml (0.47-4.68)
[2024-04-01 12:33] LABS: Troponin I < 0.012 ng/ml
== END 2024-04-01 13:24 | disposition home or self-care (01) ==
LOC: EMR 08:58
PROVIDERS: EMERGENCY PHYSICIAN Student in an Organized Health Care Education/Training Program; FAMILY PHYSICIAN Student in an Organized Health Care Education/Training Program
DX: R42 Dizziness and giddiness (principal); I11.0 Hypertensive heart disease with heart failure; I50.32 Chronic diastolic (congestive) heart failure; K21.9 Gastro-esophageal reflux disease without esophagitis; Z87.19 Personal history of other diseases of the digestive system
CPT/HCPCS: 99283; 94640; 71046; 80048; 83735; 83880; 84443; 84484; 85025; 93005

== ENCOUNTER → 2024-05-08 08:22 | Emergency (ER) | payer BC, SELFPAY ==
[2024-05-08 08:23] VITALS: BP 220/135
[2024-05-08 08:27] VITALS: BMI 36.0
--- NOTE | 2024-05-08 08:54 | ED.GENMED ---
History of Present Illness
General
Chief Complaint: Blood Pressure Problem
Source: patient
Exam Limitations: none
Time Seen by Provider: 05/08/24 08:29
History of Present Illness
History of Present Illness:
58 year old female presents with blurry vision and left sided facial numbness in the setting of elevated BP at home. She has a history of hypertension. She is on labetalol 40 mg twice a day as well as hydralazine 75 mg 3 times a day. Her
amlodipine was recently discontinued. She denies chest pain. She notes fatigue and slight shortness of breath but denies leg swelling. No vomiting or nausea. No fever. No other complaints at this time
Past History
Past History
ED Past Medical History: GERD, HTN and Other (Gastritis, C. difficile colitis March 2023); Negative Asthma or NIDDM
ED Past Surgical History: None
Social History
Tobacco: Non-smoker
Alcohol: None
Drug: None
Personal:
Living: with family
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
Family History
Family History: Other (nc)
Phy Exam
Physical Exam
Physical Exam:
General: Well-appearing female no acute respiratory distress
HEENT: Normocephalic atraumatic
Heart: Regular rate and rhythm no murmurs
Lungs: Clear no wheeze
Abdomen is soft nontender nondistended no guarding or rebound
Neurologic exam: Alert and oriented x 3 no facial asymmetry no slurred speech or aphasia. No drift on exam. Extract motions are intact
Extremities: No cyanosis or edema
Course
Orders/Labs/Results
Orders:
Orders
05/08/24 08:27
EKG [Electrocardiogram (*1)] Urgent
Reason for Study: Hypertension, Benign
EKG- Treatment ONCE
05/08/24 08:51
CT Head W/o Iv Contrast Urgent
Comment:
Reason For Exam: left sided numbness, elevated BP
05/08/24 09:04
Complete Blood Count/With Diff Urgent
Comprehensive Metabolic Panel Urgent
NT-proBNP Urgent
05/08/24 10:36
Amlodipine [Norvasc] 10 mg PO NOW STA
Abnormal Lab Results
05/08/24
09:04
MCH 26.5 L pg
(27.0-31.0)
MCHC 32.1 L g/dL
(33.0-37.0)
Eosinophils % 8.7 H %
(0-6)
BUN 23 H mg/dl
(7-17)
Creatinine 1.2 H mg/dL
(0.6-1.0)
Glucose 108 H mg/dl
(70-99)
Alkaline Phosphatase 142 H U/L
(38-126)
05/08/24 09:04
05/08/24 09:04
Vital Signs
Initial and Last Documented VS:
Initial Vital Signs
Temp Pulse Resp BP Pulse Ox
99.1 F 101 18 220/135 98
05/08/24 08:23 05/08/24 08:23 05/08/24 08:23 05/08/24 08:23 05/08/24 08:23
Last Documented Vital Signs
Temp Pulse Resp BP Pulse Ox
99.1 F 82 24 168/105 98
05/08/24 08:23 05/08/24 12:30 05/08/24 12:00 05/08/24 12:00 05/08/24 12:30
MDM/Problems Addressed
Differential Diagnosis Includes:
Patient with elevated blood pressure readings at home and also complains of blurry vision and numbness out of the left side. No neurologic deficit on exam. Will recheck blood pressure here check basic labs and CT of head. Consider starting
patient back on amlodipine if elevated blood pressure persists
*Critical Care Note
Total Time (30-74mins, 75-104mins- exclusive of procedures): Not Applicable
Update Note
Update Note:
Patient reevaluated neurologically intact labs reviewed. Discussed case with patient's resident physician. Will add amlodipine back to her regimen. She was given a dose here 10 mg. Blood pressure did not decrease. Recommend she follow-up
closely with her family doctor. Stable for discharge.
ED Attending Note
-
Portions of this chart may have been created with voice recognition software.� Occasional wrong word or��sound alike� substitutions may have occurred due to the inherent limitations of voice recognition software.
Discharge Plan
Departure
Patient Disposition: Home (Routine Discharge)
Date of Disposition: 05/08/24
Time of Disposition: 12:58
Patient with high blood pressure during this ER visit?: No
Discharge Problem:
Hypertension
Instructions: High Blood Pressure (DC)
Prescriptions:
No Action
labetalol 200 MG tablet
400 mg PO BID Qty: 200 2RF
albuterol sulfate 2.5 MG/3 ML solution for nebulization
2.5 mg inhalation R Q4HPRN PRN (Reason: SOB, COUGH, WHEEZE) Qty: 1 0RF
amlodipine 10 MG tablet
10 mg PO DAILY Qty: 30 2RF
furosemide 40 MG tablet
40 mg PO DAILY
hydralazine 50 MG tablet
50 mg PO BID
pantoprazole 40 MG tablet,delayed release (DR/EC)
40 mg PO DAILY Qty: 30 0RF
Saccharomyces boulardii 250 mg Capsule
250 mg PO BID Qty: 60 0RF
gabapentin 300 mg capsule
300 mg PO BID PRN (Reason: pain) 1 Days Qty: 60 0RF
Referrals:
NONE,* [Family Provider] -
Activity Restrictions/Additional Instructions:
Continue current medications and add on amlodipine daily. Please follow-up with your doctor. Return if worse otherwise
Interventions
Interventions:
*Risk Screen - Suicide Last Done: 05/08/24 08:24
*General Assessment Last Done: 05/08/24 08:24
ED- Fall Risk Assessment Last Done: 05/08/24 08:27
*ED COVID-19 Vaccine History Last Done: 05/08/24 08:24
ED- Cardiac Assessment Last Done: 05/08/24 08:27
ED- Neurological Assessment Last Done: 05/08/24 08:27
ED- Pulmonary Assessment Last Done: 05/08/24 08:27
Discharge Date and Time
Print Language: GERMAN
[2024-05-08 09:16] VITALS: BP 176/101
[2024-05-08 09:52] LABS: ALT (SGPT) 27 U/L (0-35); AST (SGOT) 26 U/L (14-36); Albumin 4.2 g/dl (3.5-5.0); Alkaline Phosphatase 142 U/L (38-126); Blood Urea Nitrogen 23 mg/dl (7-17); Calcium 9.7 mg/dl (8.4-10.2); Carbon Dioxide 30 mmol/L (22-30); Chloride 104 mmol/L (98-107); Estimated Creatinine Clearance 56 ml/min; Glucose 108 mg/dl (70-99); Potassium 3.7 mmol/L (3.5-5.1); Sodium 145 mmol/L (135-145); Total Bilirubin 0.2 mg/dl (0.2-1.3); Total Protein 7.1 g/dl (6.3-8.2); eGFR 53.13
[2024-05-08 09:59] LABS: NT-proBNP 227 pg/ml
--- NOTE | 2024-05-08 10:21 | EDRN ---
There is a delay in patient care related to the lab specimens. Called the lab to verify they had received all of the specimens as the CBC was reading as ordered and not received. Placed on hold by lab and they stated they 'found the tube and will
get the test started.'
[2024-05-08 10:23] LABS: % Basophils 0.8 % (0-2); % Eosinophils 8.7 % (0-6); % Immature Granulocytes 0.2 % (0-0.5); % Lymphocytes 29.5 % (20.5-51.1); % Monocytes 7.8 % (1.7-9.3); Absolute Eosinophils 0.5 10^3/uL (0-0.7); Absolute Lymphocytes 1.6 10^3/uL (1.2-3.4); Absolute Monocytes 0.4 10^3/uL (0.1-0.6); Absolute Neutrophils 2.8 10^3/uL (1.4-6.5); Hematocrit 39.3 % (37.0-47.0); Hemoglobin 12.6 g/dL (12.0-16.0); Mean Corp Hgb Conc. 32.1 g/dL (33.0-37.0); Mean Corpuscular Hgb 26.5 pg (27.0-31.0); Mean Corpuscular Volume 82.7 fL (81.0-99.0); Mean Platelet Volume 9.7 fL (7.4-10.4); Nucleated Red Blood Cells % 0 %; Platelet Count 215 10^3/uL (130-400); Red Blood Cell Count 4.75 10^6/uL (4.20-5.40); Red Cell Dist. Width 14.3 % (11.5-14.5); White Blood Cell Count 5.3 10^3/uL (4.8-10.8)
[2024-05-08 10:37] VITALS: BP 218/112
[2024-05-08] MEDS: NORVASC 10 MG PO (11:58)
[2024-05-08 12:00] VITALS: BP 168/105
[2024-05-08 13:23] VITALS: BP 177/101
== END | disposition home or self-care (01) ==
LOC: EMR 08:22
PROVIDERS: Physician Assistant; EMERGENCY PHYSICIAN Student in an Organized Health Care Education/Training Program
DX: I10 Essential (primary) hypertension (principal); K21.9 Gastro-esophageal reflux disease without esophagitis; Z79.899 Other long term (current) drug therapy; Z87.19 Personal history of other diseases of the digestive system
CPT/HCPCS: 99284; 70450; 80053; 83880; 85025; 93005

== ENCOUNTER → 2024-05-16 14:36 | Outpatient (REF) | payer BC, SELFPAY ==
[2024-05-16 15:58] LABS: Urine Albumin Trace (Neg - Trace); Urine Bilirubin Negative (Negative); Urine Character Clear (Clear); Urine Color Yellow; Urine Glucose Negative (Negative); Urine Ketone Negative (Negative); Urine Leukocyte Trace (Negative); Urine Nitrite Negative (Negative); Urine Occult Blood Negative (Negative); Urine Urobilinogen Negative (Neg - 1+)
[2024-05-16 16:10] LABS: Urine Red Blood Cell 0-2 /HPF (0-2)
[2024-05-16 16:15] LABS: Blood Urea Nitrogen 26 mg/dl (7-17); Calcium 9.6 mg/dl (8.4-10.2); Carbon Dioxide 31 mmol/L (22-30); Chloride 102 mmol/L (98-107); Glucose 121 mg/dl (70-99); HDL Cholesterol 57 mg/dl; LDL Cholesterol, Calculated 122 mg/dl; Potassium 3.6 mmol/L (3.5-5.1); Sodium 145 mmol/L (135-145); Total Cholesterol 213 mg/dl (50-199); Triglyceride 173 mg/dl (10-149); Very Low Density Lipoprotein 34 mg/dl (0-30); eGFR 48.26
[2024-05-16 16:39] LABS: Microalbumin, Random Urine 11.2 mg/dl (0.6-1.7)
== END ==
LOC: REG 14:36
PROVIDERS: ATTENDING PHYSICIAN Student in an Organized Health Care Education/Training Program; OTHER PHYSICIAN Internal Medicine
DX: I16.1 Hypertensive emergency (principal); I10 Essential (primary) hypertension
CPT/HCPCS: 36415; 80048; 80061; 81003; 81015; 82043; 82570; 83036; 84443

== ENCOUNTER → 2024-05-21 06:25 | Outpatient (REF) | payer BC, SELFPAY | LOC: RAD 06:25 | PROVIDERS: ATTENDING PHYSICIAN Student in an Organized Health Care Education/Training Program; FAMILY PHYSICIAN Student in an Organized Health Care Education/Training Program | DX: I10 Essential (primary) hypertension (principal) | CPT/HCPCS: 74175; Q9967 ==

== ENCOUNTER → 2024-06-11 07:13 | Outpatient (REF) | payer BC, SELFPAY | LOC: RCS 07:13 | PROVIDERS: ATTENDING PHYSICIAN Student in an Organized Health Care Education/Training Program | DX: I10 Essential (primary) hypertension (principal) | CPT/HCPCS: 93306 ==

== ENCOUNTER → 2025-01-27 11:26 | Outpatient (REF) | payer BC, SELFPAY | LOC: HWRAD 11:26 | PROVIDERS: ATTENDING PHYSICIAN Student in an Organized Health Care Education/Training Program | DX: M75.42 Impingement syndrome of left shoulder (principal); M79.644 Pain in right finger(s) | CPT/HCPCS: 73030; 73140 ==

== ENCOUNTER → 2025-02-16 06:18 | Outpatient (REF) | payer BC, SELFPAY ==
[2025-02-16 09:29] LABS: Hematocrit 40.7 % (37.0-47.0); Hemoglobin 12.7 g/dL (12.0-16.0); Mean Corp Hgb Conc. 31.2 g/dL (33.0-37.0); Mean Corpuscular Volume 85.0 fL (81.0-99.0); Nucleated Red Blood Cells % 0 %; Platelet Count 199 10^3/uL (130-400); Red Cell Dist. Width 14.5 % (11.5-14.5)
[2025-02-16 09:53] LABS: ALT (SGPT) 23 U/L (0-35); AST (SGOT) 19 U/L (14-36); Albumin 3.8 g/dl (3.5-5.0); Alkaline Phosphatase 107 U/L (38-126); Blood Urea Nitrogen 26 mg/dl (7-17); Calcium 9.3 mg/dl (8.4-10.2); Carbon Dioxide 29 mmol/L (22-30); Chloride 103 mmol/L (98-107); Glucose 111 mg/dl (70-99); HDL Cholesterol 49 mg/dl; LDL Cholesterol, Calculated 126 mg/dl; Potassium 3.8 mmol/L (3.5-5.1); Sodium 137 mmol/L (135-145); Total Protein 6.9 g/dl (6.3-8.2); Very Low Density Lipoprotein 30 mg/dl (0-30); eGFR 43.88
[2025-02-16 10:35] LABS: Glycohemoglobin (HgbA1c) 6.3 % (4.0-5.6)
== END ==
LOC: HWLAB 06:18
PROVIDERS: ATTENDING PHYSICIAN Student in an Organized Health Care Education/Training Program; REFERRING PHYSICIAN Internal Medicine
DX: I10 Essential (primary) hypertension (principal); E78.00 Pure hypercholesterolemia, unspecified; R73.02 Impaired glucose tolerance (oral); E78.2 Mixed hyperlipidemia
CPT/HCPCS: 36415; 80053; 80061; 82570; 83036; 84156; 84443; 85025

== ENCOUNTER → 2025-03-09 08:47 | Outpatient (REF) | payer BC, SELFPAY | LOC: WDC 08:47 | PROVIDERS: ATTENDING PHYSICIAN Obstetrics & Gynecology; FAMILY PHYSICIAN Student in an Organized Health Care Education/Training Program | DX: Z12.31 Encounter for screening mammogram for malignant neoplasm of breast (principal) | CPT/HCPCS: 77063; 77067 ==

== ENCOUNTER → 2025-03-18 08:20 | Outpatient (REF) | payer BC, SELFPAY | LOC: WDC 08:20 | PROVIDERS: ATTENDING PHYSICIAN Obstetrics & Gynecology; FAMILY PHYSICIAN Student in an Organized Health Care Education/Training Program | DX: R92.8 Other abnormal and inconclusive findings on diagnostic imaging of breast (principal) | CPT/HCPCS: 76642 ==

== ENCOUNTER → 2025-06-09 10:07 | Outpatient (REF) | payer BC, SELFPAY ==
[2025-06-12 23:10] LABS: HPV, High Risk Not Detected; HPV, High Risk Source Cervical
== END ==
LOC: CPAP 10:07
PROVIDERS: ATTENDING PHYSICIAN Obstetrics & Gynecology
DX: Z11.51 Encounter for screening for human papillomavirus (HPV) (principal); Z01.419 Encounter for gynecological examination (general) (routine) without abnormal findings
CPT/HCPCS: 87624; G0123